=== PATIENT | male | born 1945 | race Caucasian/White ===

== ENCOUNTER 2024-03-10 09:55 | Outpatient (AMB) | payer MEDICARE, SELFPAY ==
[2024-03-10 10:16] VITALS: BP 135/76; PULSE 63; RESP 18; TEMP 36.3; O2SAT 96; BMI 30.6
--- NOTE | 2024-03-10 10:16 | PD.ORTHCLVIS ---
Vital signs 03/10/24 10:16 Height 1.7 m Height Method Stated Weight 88.649 kg Weight Measurement Method Standing Scale BMI 30.6 BP 135/76 H Blood Pressure Source Automatic Cuff Blood Pressure Location Right Upper Arm Position Sitting Respiration 18 Pulse 63 Pulse Source Monitor Temp 97.3 F Temp Source Temporal Artery Scan Pulse Oximetry (%) 96 Oxygen Delivery Method Room Air Med/Allergies Allergies & Medications Allergies NKA* Allergy (Uncoded 03/10/24 10:16) Medication Reconciliation CHOLECALCIFEROL (VITAMIN D3) (VITAMIN D3) 2,000 unit PO DAILY SUPPLEMENT ##0 10/12/12 [History Confirmed 03/10/24] MULTIVITS-MINERALS/FA/LYCOPENE (ONE DAILY FOR MEN TABLET) 1 tab PO DAILY SUPPLEMENT ##0 10/12/12 [History Confirmed 03/10/24] Morphine Sulfate * (MORPHINE SULFATE *) 15 mg PO TID PRN PAIN ##0 10/12/12 [History Confirmed 03/10/24] aspirin 81 mg tablet 81 mg PO DAILY HEART ##0 10/12/12 [History Confirmed 03/10/24] cyanocobalamin (vitamin B-12) 500 mcg tablet (Vitamin B-12) 500 mcg SL DAILY SUPPLEMENT ##0 10/12/12 [History Confirmed 03/10/24] dexlansoprazole 30 mg capsule,biphase delayed release (Dexilant) 30 mg PO DAILY GERD ##0 10/12/12 [History Confirmed 03/10/24] lisinopril 5 mg tablet 5 mg PO DAILY High Blood Pressure ##0 10/12/12 [History Confirmed 03/10/24] LINAGLIPTIN/METFORMIN HCL (JENTADUETO 2.5 MG-1000 MG TAB) 1 tab PO QDAY Diabetes ##0 02/25/15 [History Confirmed 03/10/24] bupropion HCl 200 mg tablet,12 hr sustained-release (Wellbutrin SR) 200 mg PO QDAY Depression ##0 02/25/15 [History Confirmed 03/10/24] insulin glargine 100 unit/mL subcutaneous solution (Lantus U-100 Insulin) 75 unit subcut BID Diabetes #0 vials 02/25/15 [History Confirmed 03/10/24] pregabalin 75 mg capsule (Lyrica) 75 mg PO TID NERVE PAIN #0 caps 02/25/15 [History Confirmed 03/10/24] meloxicam 7.5 mg tablet 7.5 mg PO QDAY #45 tabs 03/10/24 [Rx] Subjective Visit Visit for: new patient, hip and knee Immunization / Flu Flu Vaccine in the Last 12 Months: Yes Flu Vaccine Exclusion Criteria: Already Received History of Present Illness Chief complaint: PAIN ON HIP AND KNEE Anil is a pleasant 79-year-old male with Left hip pain and knee pain. The pain starts in his back and radiates down. He has a history of back surgery. He does have pain mostly in the groin. He has uncontrolled diabetes with A1c of 9 Pain Pain level (0-10): 5 Pain duration: WITH MOVEMENT Pain location: inside (medial), outside (lateral), anterior, posterior and other (specify) (HIP) Pain quality: sharp, dull and aching Pain timing: night, increases with activity and stairs Associated signs & symptoms: none Ambulatory data Ambulatory device: none Treatments Improvement with previous injections: No Improvement with PT: No Improvement with NSAIDS: no Review of Systems Review of Systems: All systems negative unless otherwise noted in HPI. Exam Exam Patient is in no acute distress and is cooperative with the examination today. Breathing is nonlabored. In no respiratory distress. Patient has no paraspinal tenderness. Spinal deformity [cannot] be appreciated. The gait of the patient is [nonantalgic] Bilateral extremities were evaluated and demonstrates sensation intact to light touch. Palpable pedal pulses are present. No significant edema is present. Bilateral knees were examined and the patient has full strength and range of motion.. The right hip was examined. Patient was able to flex to 90 degrees, adduct to 30 degrees, abduct to 40 degrees, internally rotate to 20 degrees, and externally rotate to 20 degrees. Patient has a negative logroll. Stinchfield is negative. The patient is nontender diffusely to touch. The left hip was examined. Patient was able to flex to [90] degrees, adduct to [30] degrees, abduct to [40] degrees, internally rotate to 10degrees, and externally rotate to [20] degrees. Patient has a negative logroll and Stinchfield X-rays of his hip and knee were reviewed. This demonstrates a mild to moderate arthritis of his left hip with joint space narrowing. There is significant osteophytes in his spine and degenerative lumbar disease His left knee x-rays are nonweightbearing and also demonstrates mild to moderate arthritis Assessment and Plan Problem List (1) Spinal stenosis: Status: Acute (2) Arthritis of left hip: Status: Acute Plan: Patient is a 79-year-old male with left hip and knee pain. The pain starts on the hip and radiates down to his knee. He has a history of back surgery and I wonder how much of this is coming from the back versus his hip and knee. The report says that there is moderate to advanced arthritis but actually looks milder to me. I would describe this as mild to moderate arthritis of the left hip. I would first like to start by getting weightbearing x-rays of the left knee. I would also like to see how much of this pain is coming from his hip with an intra-articular hip injection. I would like to see him in approximately 3 to 4 weeks after the hip injection is done. He is actually a poor candidate for a total hip replacement as his diabetes is currently uncontrolled and he is having vision changes from this. We will see him back after his cortisone injection of his hip in approximately 2 weeks after that. Advanced Care Planning Discussion Advance care planning discussed with:: patient and spouse Office Procedures GNS Level of Care Nursing/Assessment Patient Status: Initial/New Patient Nursing Assessment/Reassesment: Medication Reconciliation, Update PMH in EMR and Vital Signs Coordination of Care: Complex Care and Chronic Disease 1-5, Education Complex Pt/Fam, Consent,records obtained, informed consent, 1 Ins Authorization, Lab and Imaging orders and Staff clarify orders New Patient Charge New Patient Point Assignment: [id number] New Patient Point Charge: CLASS A [employer] Level 4 ([id number]) Past Medical History Past Medical History Have you ever been diagnosed with any of the following: Respiratory Problems Smoking: Yes (20 YEARS) Smoking Cessation Counseling: No Smoking Exposure: Yes
== END 2024-03-10 11:08 | disposition home or self-care (01) ==
PROVIDERS: PCP Internal Medicine; Referring Provider Internal Medicine; Supervising Provider Orthopaedic Surgery Adult Reconstructive Orthopaedic Surgery; Visit Provider Orthopaedic Surgery Adult Reconstructive Orthopaedic Surgery
DX: M48.00 Spinal stenosis, site unspecified (principal); M25.552 Pain in left hip; M16.12 Unilateral primary osteoarthritis, left hip; M25.569 Pain in unspecified knee
CPT/HCPCS: 99204; G0463

== ENCOUNTER → 2024-05-18 | Outpatient (CLI) | payer MEDICARE, SELFPAY ==
[2024-05-18 14:25] LABS: Glucose Estimated Average 183 mg/dL (80-131)
[2024-05-18 14:32] LABS: Albumin, Serum 4.5 gm/dL (3.4-4.8); Anion Gap 6 (7-16); BUN/Creatinine Ratio 13 Ratio (12-20); Blood Urea Nitrogen 17 mg/dL (9-23); Chloride 98 mMol/L (98-107); Creatinine (Component) 1.3 mg/dL (0.6-1.3); Glucose 70 mg/dL (74-106); Osmolality,Calculated 262 (275-295); Phosphorous 2.5 mg/dL (2.4-5.1); Potassium 4.9 mMol/L (3.4-5.1); Sodium 131 mMol/L (136-145); eGFR 56 See Note
== END | disposition home or self-care (01) ==
PROVIDERS: PCP Internal Medicine; Referring Provider Internal Medicine; Visit Provider Internal Medicine
DX: E11.22 Type 2 diabetes mellitus with diabetic chronic kidney disease (principal); N18.30 Chronic kidney disease, stage 3 unspecified
CPT/HCPCS: 36415; 80069; 83036

== ENCOUNTER 2024-05-24 14:46 | Outpatient (AMB) | payer OTHER, SELFPAY ==
[2024-05-24 14:56] VITALS: BP 143/73; PULSE 78; RESP 18; TEMP 36.5; O2SAT 98; BMI 30.7
--- NOTE | 2024-05-24 14:56 | PD.ORTHCLVIS ---
Vital signs 05/24/24 14:56 Height 1.7 m Height Method Stated Weight 88.677 kg Weight Measurement Method Standing Scale BMI 30.7 BP 143/73 H Blood Pressure Source Automatic Cuff Blood Pressure Location Right Upper Arm Position Sitting Respiration 18 Pulse 78 Pulse Source Monitor Temp 97.7 F Temp Source Temporal Artery Scan Pulse Oximetry (%) 98 Oxygen Delivery Method Room Air Med/Allergies Allergies & Medications Allergies NKA* Allergy (Uncoded 05/24/24 15:01) Medication Reconciliation CHOLECALCIFEROL (VITAMIN D3) (VITAMIN D3) 2,000 unit PO DAILY SUPPLEMENT ##0 10/12/12 [History Confirmed 05/24/24] MULTIVITS-MINERALS/FA/LYCOPENE (ONE DAILY FOR MEN TABLET) 1 tab PO DAILY SUPPLEMENT ##0 10/12/12 [History Confirmed 05/24/24] Morphine Sulfate * (MORPHINE SULFATE *) 15 mg PO TID PRN PAIN ##0 10/12/12 [History Confirmed 05/24/24] aspirin 81 mg tablet 81 mg PO DAILY HEART ##0 10/12/12 [History Confirmed 05/24/24] cyanocobalamin (vitamin B-12) 500 mcg tablet (Vitamin B-12) 500 mcg SL DAILY SUPPLEMENT ##0 10/12/12 [History Confirmed 05/24/24] dexlansoprazole 30 mg capsule,biphase delayed release (Dexilant) 30 mg PO DAILY GERD ##0 10/12/12 [History Confirmed 05/24/24] lisinopril 5 mg tablet 5 mg PO DAILY High Blood Pressure ##0 10/12/12 [History Confirmed 05/24/24] LINAGLIPTIN/METFORMIN HCL (JENTADUETO 2.5 MG-1000 MG TAB) 1 tab PO QDAY Diabetes ##0 02/25/15 [History Confirmed 05/24/24] bupropion HCl 200 mg tablet,12 hr sustained-release (Wellbutrin SR) 200 mg PO QDAY Depression ##0 02/25/15 [History Confirmed 05/24/24] insulin glargine 100 unit/mL subcutaneous solution (Lantus U-100 Insulin) 75 unit subcut BID Diabetes #0 vials 02/25/15 [History Confirmed 05/24/24] pregabalin 75 mg capsule (Lyrica) 75 mg PO TID NERVE PAIN #0 caps 02/25/15 [History Confirmed 05/24/24] meloxicam 7.5 mg tablet 7.5 mg PO QDAY #45 tabs 03/10/24 [Rx Confirmed 05/24/24] Exam Exam Patient is in no acute distress and is cooperative with the examination today. Breathing is nonlabored. In no respiratory distress. Patient has no paraspinal tenderness. Spinal deformity [cannot] be appreciated. The gait of the patient is [nonantalgic] Bilateral extremities were evaluated and demonstrates sensation intact to light touch. Palpable pedal pulses are present. No significant edema is present. Bilateral knees were examined and the patient has full strength and range of motion.. The right hip was examined. Patient was able to flex to 90 degrees, adduct to 30 degrees, abduct to 40 degrees, internally rotate to 20 degrees, and externally rotate to 20 degrees. Patient has a negative logroll. Stinchfield is negative. The patient is nontender diffusely to touch. The left hip was examined. Patient was able to flex to [90] degrees, adduct to [30] degrees, abduct to [40] degrees, internally rotate to 10degrees, and externally rotate to [20] degrees. Patient has a negative logroll and Stinchfield X-rays of his hip and knee were reviewed. This demonstrates a mild to moderate arthritis of his left hip with joint space narrowing. There is significant osteophytes in his spine and degenerative lumbar disease His left knee x-rays are nonweightbearing and also demonstrates mild to moderate arthritis. Assessment and Plan Problem List (1) Spinal stenosis: Status: Acute (2) Arthritis of left hip: Status: Acute Plan: Patient is a 79-year-old male with left hip and knee pain. The pain starts on the hip and radiates down to his knee. He did receive good relief to the hip injection. He would like a knee injection today which I think is reasonable. He does have mild to moderate arthritis Recommend knee cortisone injection as patient would like to proceed with conservative treatment at this time. The risks and benefits of the procedure were reviewed with the patient and patient gave verbal consent to continue with the procedure. Procedure: performed by Dr. Sanchez Using sterile technique the left knee was thoroughly prepped with alcohol, and approximately 1 cc of Kenalog 40 mg/mL and 4 cc of 1% lidocaine was injected without resistance into the medial tibial femoral joint space. The patient tolerated the procedure. Advanced Care Planning Discussion Advance care planning discussed with:: patient Office Procedures GNS Level of Care Nursing/Assessment Patient Status: Established Patient Nursing Assessment/Reassesment: Medication Reconciliation, Update PMH in EMR and Vital Signs Coordination of Care: Complex Care and Chronic Disease 1-5, Education Complex Pt/Fam, Consent,records obtained, informed consent, Results/Orders obtained and Staff clarify orders Established Patient Charge Established Patient Point Assignment: 95 Established Patient Point Charge: EP Level 3 (80-115) Surgical Proc/IM SQ injection Major Surgical Procedure: Yes (KNEE INJECTION) Medication Given Medication Given Medication Given: Yes Documented Dose Given: 4 Route: Infiitration Medication Given Medication Given Medication Given: Yes Documented Dose Given: 4 Route: Infiitration Medication Given Medication Given Medication Given: Yes Documented Dose Given: 1 Route: Infiitration Medication Given Medication Given Medication Given: Yes Documented Dose Given: 1 Route: Infiitration Office Meds Xylocaine 10 mg/mL (1 %) injection solution Performing Provider: Jarred Sanchez MD Performing Location: [facility] Administered by: Jarred Sanchez MD on 05/24/24 15:20 Dose Route Admin Location Dispensed Lot Number Expiration Date [place] Stock Turner 20 mL Infiltration 20 mL [id number] 09/08/27 65876-476-42 [employer] Xylocaine 10 mg/mL (1 %) injection solution Performing Provider: Jarred Sanchez MD Performing Location: [facility] Administered by: Jarred Sanchez MD on 05/24/24 15:20 Dose Route Admin Location Dispensed Lot Number Expiration Date [place] Stock Turner 20 mL Infiltration 20 mL [id number] 09/08/27 61176-405-23 [employer] triamcinolone acetonide 40 mg/mL suspension for injection Performing Provider: Jarred Sanchez MD Performing Location: [facility] Administered by: Jarred Sanchez MD on 05/24/24 15:20 Dose Route Admin Location Dispensed Lot Number Expiration Date [facility] Stock Turner 40 mg intra-articular KNEE 1 mL [id number] 10/07/25 3574-1282-49 [employer] triamcinolone acetonide 40 mg/mL suspension for injection Performing Provider: Jarred Sanchez MD Performing Location: [facility] Administered by: Jarred Sanchez MD on 05/24/24 15:20 Dose Route Admin Location Dispensed Lot Number Expiration Date [facility] Stock Turner 40 mg intra-articular KNEE 1 mL [id number] 10/07/25 1263-7321-94 TEVA PARENTERAL [place] Intake Visit Data Collection New Patient or Established: Established Patient (seen at [facility] within 3 years) Reason for Visit:: LEFT KNEE PAIN Seen by Clinical Staff ONLY (RN/SWETA): No Verbal consent obtained for Telemed visit?: No Paramedic Supervisor Required: No PCP or OBGYN visit in last 3 months: Yes Hx Now: No Do You Feel Safe at Home: Yes Authorities Contacted: N/A Questionairres Past Medical History Past Medical History Have you ever been diagnosed with any of the following: Respiratory Problems Smoking: Yes (20 YEARS) Smoking Cessation Counseling: No Smoking Exposure: Yes Subjective Visit Visit for: follow up visit and knee Immunization / Flu Flu Vaccine in the Last 12 Months: No Flu Vaccine Exclusion Criteria: No Exclusion Criteria History of Present Illness Chief complaint: LEFT KNEE PAIN Chava is a 79-year-old male with a left hip and left knee pain. He has she did really well with a left hip cortisone injection that was intra-articular. He reports the left knee is actually was bothering him the most. He does not. This. He reports mostly pain.. We thus discussed a cortisone injection today Pain Pain level (0-10): 8 Pain duration: COMES AND GOES Pain location: inside (medial), outside (lateral), anterior and posterior Pain quality: sharp and burning Pain timing: increases with activity Ambulatory data Ambulatory device: none Treatments Improvement with previous injections: No Improvement with PT: No Improvement with NSAIDS: n/a Review of Systems Review of Systems: All systems negative unless otherwise noted in HPI.
== END 2024-05-24 15:30 | disposition home or self-care (01) ==
PROVIDERS: PCP Internal Medicine; Referring Provider Internal Medicine; Supervising Provider Orthopaedic Surgery Adult Reconstructive Orthopaedic Surgery; Visit Provider Orthopaedic Surgery Adult Reconstructive Orthopaedic Surgery
DX: M16.12 Unilateral primary osteoarthritis, left hip (principal); M48.00 Spinal stenosis, site unspecified
CPT/HCPCS: 20610; 99213; J3301; J3490; G0463

== ENCOUNTER → 2024-10-05 | Outpatient (CLI) | payer OTHER, SELFPAY ==
[2024-10-05 10:26] LABS: Basophils # (Auto) 0.1 Thou/mm3 (0.0-0.2); Basophils % (Auto) 1 % (0-2.5); Eosinophils # (Auto) 0.3 Thou/mm3 (0.0-0.5); Eosinophils % (Auto) 4 % (0-10); Hemoglobin 14.1 g/dL (13.5-16.0); Immature Granulocytes % (Auto) 1 % (0-0); Immature Granulocytes Auto 0.07 Thou/mm3 (0.00-0.00); Lymphocytes % (Auto) 27 % (10-50); Mean Corpuscular HGB Conc 35.3 g/dl (31.0-37.0); Mean Corpuscular Hemoglobin 33.3 pg (25.0-35.0); Mean Corpuscular Volume 95 fL (80-100); Monocytes # (Auto) 0.8 Thou/mm3 (0.0-0.8); Monocytes % (Auto) 10 % (0-12); Neutrophils # (Auto) 4.1 Thou/mm3 (1.8-7.7); Neutrophils % (Auto) 56 % (37-80); Nucleated Red Blood Cell % 0 /100 WBC (0); Platelet Count 297 Thou/mm3 (140-440); RDW Standard Deviation 46.2 fL (35.1-43.9); Red Blood Count 4.23 Miln/mm3 (4.50-5.90); White Blood Count 7.3 Thou/mm3 (3.8-10.6)
[2024-10-05 10:33] LABS: Glucose Estimated Average 183 mg/dL (80-131)
[2024-10-05 10:36] LABS: PSA Medicare Annual Scrn 0.65 ng/mL (0-4.00)
[2024-10-05 10:41] LABS: Parathyroid Hormone Intact 14.5 pg/ml (18.5-88.0)
[2024-10-05 10:55] LABS: Alanine Aminotransferase 20 U/L (10-49); Albumin, Serum 4.2 gm/dL (3.4-4.8); Albumin/Globulin Ratio 1.7 (1.2-2.2); Alkaline Phosphatase 49 U/L (46-116); Anion Gap 9 (7-16); Aspartate Amino Transferase 27 U/L (0-34); BUN/Creatinine Ratio 11 Ratio (12-20); Bilirubin,Total 0.4 mg/dL (0.3-1.2); Blood Urea Nitrogen 16 mg/dL (9-23); Calcium 9.5 mg/dL (8.3-10.6); Calcium (Corrected) 9.5 mg/dL (8.5-10.1); Carbon Dioxide 27.4 mMol/L (20.0-31.0); Cardiac Risk Estimate 3.1 RATIO (4.0-6.7); Chloride 100 mMol/L (98-107); Cholesterol 111 mg/dL (132-200); Creatinine (Component) 1.4 mg/dL (0.6-1.3); Globulin 2.5 gm/dL (2.3-3.5); Glucose 109 mg/dL (74-106); HDL Cholesterol 36 mg/dL (40-60); LDL Cholesterol,Calculated 40 mg/dL (0-130); Osmolality,Calculated 274 (275-295); Sodium 136 mMol/L (136-145); Total Protein 6.7 gm/dL (5.7-8.2); Triglycerides 174 mg/dL (30-150); eGFR 51 See Note
[2024-10-05 11:08] LABS: Collection Type, Urine Clean Catch
[2024-10-05 11:39] LABS: Bilirubin,Urine Negative (Negative); Blood,Urine Negative (Negative); Clarity,Urine Clear (Clear/Hazy); Color,Urine Lt-Yellow (Lt Yel-Yel); Glucose, Urine Negative (Negative); Ketones,Urine Negative (Negative); Leukocyte Esterase,Urine Positive (Negative); Nitrite,Urine Negative (Negative); Protein,Urine Trace (Neg - Trace); RBC,Urine 3 /hpf (0-3); Specific Gravity,Urine 1.016 (1.001-1.035); Squamous Epithelial Cell,Urine 3 /hpf (0-5); Urobilinogen,Urine Negative mg/dL (0.0-1.0); WBC,Urine 65 /hpf (0-5)
[2024-10-05 11:53] LABS: Creatinine MALB Rnd Ur 86 mg/dL (30-125); Microalbumin Creat Ratio 80 mg/gCrea (<30); Microalbumin, Random Urine 69 mg/L (0-300)
== END | disposition home or self-care (01) ==
LOC: COPL 09:37
PROVIDERS: PCP Internal Medicine; Referring Provider Internal Medicine; Visit Provider Internal Medicine
DX: I12.9 Hypertensive chronic kidney disease with stage 1 through stage 4 chronic kidney disease, or unspecified chronic kidney disease (principal); E11.22 Type 2 diabetes mellitus with diabetic chronic kidney disease; N18.30 Chronic kidney disease, stage 3 unspecified; E78.5 Hyperlipidemia, unspecified; Z12.5 Encounter for screening for malignant neoplasm of prostate
CPT/HCPCS: 36415; 80053; 80061; 81001; 82043; 82570; 83036; 83970; 84153; 85025; G0103

== ENCOUNTER 2024-11-22 14:13 | Outpatient (AMB) | payer OTHER, SELFPAY ==
[2024-11-22 14:43] VITALS: BP 108/57; PULSE 76; RESP 18; TEMP 36.1; O2SAT 91; BMI 30.8
--- NOTE | 2024-11-22 14:43 | PD.ORTHCLVIS ---
Vital signs 11/22/24 14:43 Height 1.7 m Height Method Stated Weight 89.046 kg Weight Measurement Method Standing Scale BMI 30.8 BP 108/57 L Blood Pressure Source Automatic Cuff Blood Pressure Location Right Upper Arm Position Sitting Respiration 18 Pulse 76 Pulse Source Monitor Temp 97.0 F Temp Source Temporal Artery Scan Pulse Oximetry (%) 91 L Oxygen Delivery Method Room Air Med/Allergies Allergies & Medications Allergies NKA* Allergy (Uncoded 11/22/24 14:43) Medication Reconciliation CHOLECALCIFEROL (VITAMIN D3) (VITAMIN D3) 2,000 unit PO DAILY SUPPLEMENT ##0 10/12/12 [History Confirmed 11/22/24] MULTIVITS-MINERALS/FA/LYCOPENE (ONE DAILY FOR MEN TABLET) 1 tab PO DAILY SUPPLEMENT ##0 10/12/12 [History Confirmed 11/22/24] Morphine Sulfate * (MORPHINE SULFATE *) 15 mg PO TID PRN PAIN ##0 10/12/12 [History Confirmed 11/22/24] aspirin 81 mg tablet 81 mg PO DAILY HEART ##0 10/12/12 [History Confirmed 11/22/24] cyanocobalamin (vitamin B-12) 500 mcg tablet (Vitamin B-12) 500 mcg SL DAILY SUPPLEMENT ##0 10/12/12 [History Confirmed 11/22/24] dexlansoprazole 30 mg capsule,biphase delayed release (Dexilant) 30 mg PO DAILY GERD ##0 10/12/12 [History Confirmed 11/22/24] lisinopril 5 mg tablet 5 mg PO DAILY High Blood Pressure ##0 10/12/12 [History Confirmed 11/22/24] LINAGLIPTIN/METFORMIN HCL (JENTADUETO 2.5 MG-1000 MG TAB) 1 tab PO QDAY Diabetes ##0 02/25/15 [History Confirmed 11/22/24] bupropion HCl 200 mg tablet,12 hr sustained-release (Wellbutrin SR) 200 mg PO QDAY Depression ##0 02/25/15 [History Confirmed 11/22/24] insulin glargine 100 unit/mL subcutaneous solution (Lantus U-100 Insulin) 75 unit subcut BID Diabetes #0 vials 02/25/15 [History Confirmed 11/22/24] pregabalin 75 mg capsule (Lyrica) 75 mg PO TID NERVE PAIN #0 caps 02/25/15 [History Confirmed 11/22/24] meloxicam 7.5 mg tablet 7.5 mg PO QDAY #45 tabs 03/10/24 [Rx Confirmed 11/22/24] Exam Exam Patient is in no acute distress and is cooperative with the examination today. Breathing is nonlabored. In no respiratory distress. Patient has no paraspinal tenderness. Spinal deformity [cannot] be appreciated. The gait of the patient is [nonantalgic] Bilateral extremities were evaluated and demonstrates sensation intact to light touch. Palpable pedal pulses are present. No significant edema is present. Bilateral knees were examined and the patient has full strength and range of motion.. The right hip was examined. Patient was able to flex to 90 degrees, adduct to 30 degrees, abduct to 40 degrees, internally rotate to 20 degrees, and externally rotate to 20 degrees. Patient has a negative logroll. Stinchfield is negative. The patient is nontender diffusely to touch. The left hip was examined. Patient was able to flex to [90] degrees, adduct to [30] degrees, abduct to [40] degrees, internally rotate to 10degrees, and externally rotate to [20] degrees. Patient has a negative logroll and Stinchfield X-rays of his hip and knee were reviewed. This demonstrates a mild to moderate arthritis of his left hip with joint space narrowing. There is significant osteophytes in his spine and degenerative lumbar disease His left knee x-rays are nonweightbearing and also demonstrates mild to moderate arthritis. Assessment and Plan Problem List (1) Spinal stenosis: Status: Acute (2) Arthritis of left hip: Status: Acute Plan: Patient is a 79-year-old male with left hip and knee pain. The pain starts on the hip and radiates down to his knee. He would like bilateral knee injections today. He reports that his left hip is doing significantly better Recommend knee cortisone injections as patient would like to proceed with conservative treatment at this time. The risks and benefits of the procedure were reviewed with the patient and patient gave verbal consent to continue with the procedure. Procedure: performed by Dr. Sanchez Using sterile technique the Bilateral knees were thoroughly prepped with alcohol, and approximately 1 cc of Kenalog 40 mg/mL and 4 cc of 1% lidocaine was injected into each knee without resistance into the medial tibial femoral joint space. The patient tolerated the procedure. Advanced Care Planning Discussion Advance care planning discussed with:: patient Office Procedures GNS Level of Care Nursing/Assessment Patient Status: Established Patient Nursing Assessment/Reassesment: Medication Reconciliation, Update PMH in EMR and Vital Signs Coordination of Care: Complex Care and Chronic Disease 1-5, Education Complex Pt/Fam, Consent,records obtained, informed consent, Results/Orders obtained and Staff clarify orders Established Patient Charge Established Patient Point Assignment: 95 Established Patient Point Charge: EP Level 3 (80-115) Surgical Proc/IM SQ injection Major Surgical Procedure: Yes (BILATERAL KNEE INJECTION ) Medication Given Medication Given Medication Given: Yes Documented Dose Given: 8 Route: Infiitration Medication Given Medication Given Medication Given: Yes Documented Dose Given: 2 Route: Infiitration Office Meds Xylocaine 10 mg/mL (1 %) injection solution Performing Provider: Jarred Sanchez MD Performing Location: [facility] Administered by: Jarred Sanchez MD on 11/22/24 15:27 Dose Route Admin Location Dispensed Lot Number Expiration Date [facility] Celluloid Trimmer 40 mL Infiltration KNEE 40 mL [id number] 02/08/28 36842-019-71 [facility] triamcinolone acetonide 40 mg/mL suspension for injection Performing Provider: Jarred Sanchez MD Performing Location: [facility] Administered by: Jarred Sanchez MD on 11/22/24 15:27 Dose Route Admin Location Dispensed Lot Number Expiration Date [facility] Celluloid Trimmer 80 mg intra-articular KNEE 2 mL [id number] 06/10/26 54200-876-93 BILLY GOLDMAN [place] Intake Visit Data Collection New Patient or Established: Established Patient (seen at [facility] within 3 years) Reason for Visit:: LEFT KNEE PAIN Seen by Clinical Staff ONLY (RN/MA): No Verbal consent obtained for Telemed visit?: No Director Of Cardiopulmonary Services Required: No PCP or OBGYN visit in last 3 months: Yes Hx Now: No Do You Feel Safe at Home: Yes Authorities Contacted: N/A Questionairres Past Medical History Past Medical History Have you ever been diagnosed with any of the following: Respiratory Problems Smoking: Yes (20 YEARS) Smoking Cessation Counseling: No Smoking Exposure: Yes Subjective Visit Visit for: follow up visit and knee Immunization / Flu Flu Vaccine in the Last 12 Months: No Flu Vaccine Exclusion Criteria: No Exclusion Criteria History of Present Illness Chief complaint: LEFT KNEE PAIN Chava is a 79-year-old male with a left hip and left knee pain. He has she did really well with a left hip cortisone injection that was intra-articular. He reports that he has bilateral knee pain. X-rays demonstrate bilateral knee arthritis of moderate severity. He would like bilateral knee injections today Personal History Occupation: DISABLED Red flag PMH: BMI Pain Pain level (0-10): 8 Pain duration: ALL DAY Pain location: outside (lateral) and anterior Pain quality: sharp and dull Pain timing: increases with activity Associated signs & symptoms: none Ambulatory data Ambulatory device: cane Treatments Improvement with previous injections: No Improvement with PT: No Improvement with NSAIDS: no Review of Systems Review of Systems: All systems negative unless otherwise noted in HPI.
== END 2024-11-22 15:11 | disposition home or self-care (01) ==
LOC: HODSRG 14:13
PROVIDERS: PCP Internal Medicine; Referring Provider Internal Medicine; Supervising Provider Orthopaedic Surgery Adult Reconstructive Orthopaedic Surgery; Visit Provider Orthopaedic Surgery Adult Reconstructive Orthopaedic Surgery
DX: M17.0 Bilateral primary osteoarthritis of knee (principal); M25.562 Pain in left knee; M25.561 Pain in right knee; M25.552 Pain in left hip; M16.12 Unilateral primary osteoarthritis, left hip; M48.00 Spinal stenosis, site unspecified
CPT/HCPCS: 20610; 99213; J3301; J3490; G0463

== ENCOUNTER → 2024-12-16 | Outpatient (CLI) | payer OTHER, SELFPAY ==
[2024-12-16 10:20] LABS: Collection Type, Urine Clean Catch
[2024-12-16 10:36] LABS: Basophils # (Auto) 0.1 Thou/mm3 (0.0-0.2); Basophils % (Auto) 1 % (0-2.5); Eosinophils # (Auto) 0.3 Thou/mm3 (0.0-0.5); Eosinophils % (Auto) 4 % (0-10); Hematocrit 38.5 % (41.0-53.0); Hemoglobin 13.3 g/dL (13.5-16.0); Immature Granulocytes Auto 0.08 Thou/mm3 (0.00-0.00); Lymphocytes # (Auto) 2.2 Thou/mm3 (1.0-4.8); Lymphocytes % (Auto) 28 % (10-50); Mean Corpuscular HGB Conc 34.5 g/dl (31.0-37.0); Mean Corpuscular Hemoglobin 33.5 pg (25.0-35.0); Mean Corpuscular Volume 97 fL (80-100); Monocytes # (Auto) 0.8 Thou/mm3 (0.0-0.8); Monocytes % (Auto) 10 % (0-12); Neutrophils # (Auto) 4.3 Thou/mm3 (1.8-7.7); Neutrophils % (Auto) 56 % (37-80); Nucleated Red Blood Cell # 0.00 Thou/mm3 (0.00-0.00); Nucleated Red Blood Cell % 0 /100 WBC (0); Platelet Count 311 Thou/mm3 (140-440); RDW Standard Deviation 47.9 fL (35.1-43.9); Red Blood Count 3.97 Miln/mm3 (4.50-5.90); White Blood Count 7.7 Thou/mm3 (3.8-10.6)
[2024-12-16 10:45] LABS: PSA Medicare Annual Scrn 0.75 ng/mL (0-4.00); Parathyroid Hormone Intact 14.1 pg/ml (18.5-88.0)
[2024-12-16 10:46] LABS: Glucose Estimated Average 217 mg/dL (80-131); Hemoglobin A1C 9.2 % Hgb (4.8-6.0)
[2024-12-16 10:48] LABS: Alanine Aminotransferase 24 U/L (10-49); Albumin, Serum 4.0 gm/dL (3.4-4.8); Albumin/Globulin Ratio 1.9 (1.2-2.2); Alkaline Phosphatase 49 U/L (46-116); Anion Gap 7 (7-16); Aspartate Amino Transferase 28 U/L (0-34); BUN/Creatinine Ratio 10 Ratio (12-20); Bilirubin,Total 0.3 mg/dL (0.3-1.2); Blood Urea Nitrogen 15 mg/dL (9-23); Calcium 9.7 mg/dL (8.3-10.6); Calcium (Corrected) 9.7 mg/dL (8.5-10.1); Carbon Dioxide 25.5 mMol/L (20.0-31.0); Cardiac Risk Estimate 3.9 RATIO (4.0-6.7); Chloride 105 mMol/L (98-107); Cholesterol 131 mg/dL (132-200); Creatinine (Component) 1.5 mg/dL (0.6-1.3); Globulin 2.1 gm/dL (2.3-3.5); Glucose 198 mg/dL (74-106); HDL Cholesterol 34 mg/dL (40-60); LDL Cholesterol,Calculated 48 mg/dL (0-130); Osmolality,Calculated 280 (275-295); Potassium 4.9 mMol/L (3.4-5.1); Sodium 137 mMol/L (136-145); Thyroid Stimulating Hormone 0.84 uIU/mL (0.55-4.78); Total Protein 6.1 gm/dL (5.7-8.2); Triglycerides 243 mg/dL (30-150); eGFR 47 See Note
[2024-12-16 10:49] LABS: Vitamin B12 555 pg/mL (211-911); Vitamin D 25 Hydroxy Total 37.0 ng/mL (7.3-40.2)
[2024-12-16 10:51] LABS: Creatinine MALB Rnd Ur 134 mg/dL (30-125); Microalbumin Creat Ratio 48 mg/gCrea (<30); Microalbumin, Random Urine 64 mg/L (0-300)
[2024-12-16 11:12] LABS: Bilirubin,Urine Negative (Negative); Blood,Urine Negative (Negative); Clarity,Urine Clear (Clear/Hazy); Color,Urine Lt-Yellow (Lt Yel-Yel); Glucose, Urine 4+ (Negative); Ketones,Urine Negative (Negative); Leukocyte Esterase,Urine Positive (Negative); Nitrite,Urine Negative (Negative); PH,Urine 5.5 (5.0-7.0); Protein,Urine Trace (Neg - Trace); RBC,Urine 4 /hpf (0-3); Specific Gravity,Urine 1.024 (1.001-1.035); Squamous Epithelial Cell,Urine 1 /hpf (0-5); Urobilinogen,Urine Negative mg/dL (0.0-1.0); WBC,Urine 53 /hpf (0-5)
== END | disposition home or self-care (01) ==
LOC: COPL 09:33
PROVIDERS: PCP Internal Medicine; Referring Provider Internal Medicine; Visit Provider Internal Medicine
DX: I12.9 Hypertensive chronic kidney disease with stage 1 through stage 4 chronic kidney disease, or unspecified chronic kidney disease (principal); E11.22 Type 2 diabetes mellitus with diabetic chronic kidney disease; N18.30 Chronic kidney disease, stage 3 unspecified; E78.5 Hyperlipidemia, unspecified
CPT/HCPCS: 36415; 80053; 80061; 81001; 82043; 82306; 82570; 82607; 83036; 83970; 84153; 84443; 85025; G0103

== ENCOUNTER → 2025-01-11 | Outpatient (CLI) | payer OTHER, SELFPAY ==
[2025-01-11 12:16] LABS: OBS Performed By LAB; OBS QC OK? Yes
[2025-01-11 13:27] LABS: Occult Blood, Stool Negative (Negative); Occult Blood, Stool #2 Negative (Negative); Occult Blood, Stool #3 Negative (Negative)
[2025-01-11 13:28] LABS: OBS Developer Lot # 4-24-551749
== END | disposition home or self-care (01) ==
LOC: SLDO 12:02
PROVIDERS: Referring Provider Internal Medicine; Visit Provider Internal Medicine
DX: Z12.11 Encounter for screening for malignant neoplasm of colon (principal)
CPT/HCPCS: 82270

== ENCOUNTER 2025-02-07 15:12 | Outpatient (AMB) | payer OTHER, SELFPAY ==
--- NOTE | 2025-02-07 15:26 | XR_ITS ---
Examination: Bilateral knees 2 views Right lateral knee left lateral knee 2 views Bilateral axial knees single view TECHNIQUE: Bilateral AP knees standing single view, bilateral PA knees standing single view flexion Standing right lateral knee left lateral knee 2 views Bilateral axial knees single view total 5 views Date and time: February 07, 2025 1541 hours INDICATIONS: Knee pain years. 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
--- NOTE | 2025-02-07 15:26 | ORTHONT_ITS ---
Vital signs 02/07/25 15:27 Height 1.7 m Height Method Measured Weight 88.195 kg Weight Measurement Method Standing Scale BMI 30.5 BP 133/69 H Blood Pressure Source Automatic Cuff Blood Pressure Location Left Upper Arm Position Sitting Respiration 18 Pulse 76 Pulse Source Monitor Temp 97.3 F Temp Source Temporal Artery Scan Pulse Oximetry (%) 97 Oxygen Delivery Method Room Air Med/Allergies Allergies & Medications Allergies NKA* Allergy (Uncoded 02/07/25 15:31) Medication Reconciliation CHOLECALCIFEROL (VITAMIN D3) (VITAMIN D3) 2,000 unit PO DAILY SUPPLEMENT ##0 10/12/12 [History Confirmed 02/07/25] MULTIVITS-MINERALS/FA/LYCOPENE (ONE DAILY FOR MEN TABLET) 1 tab PO DAILY SUPPLEMENT ##0 10/12/12 [History Confirmed 02/07/25] Morphine Sulfate * (MORPHINE SULFATE *) 15 mg PO TID PRN PAIN ##0 10/12/12 [History Confirmed 02/07/25] aspirin 81 mg tablet 81 mg PO DAILY HEART ##0 10/12/12 [History Confirmed 02/07/25] cyanocobalamin (vitamin B-12) 500 mcg tablet (Vitamin B-12) 500 mcg SL DAILY SUPPLEMENT ##0 10/12/12 [History Confirmed 02/07/25] dexlansoprazole 30 mg capsule,biphase delayed release (Dexilant) 30 mg PO DAILY GERD ##0 10/12/12 [History Confirmed 02/07/25] lisinopril 5 mg tablet 5 mg PO DAILY High Blood Pressure ##0 10/12/12 [History Confirmed 02/07/25] LINAGLIPTIN/METFORMIN HCL (JENTADUETO 2.5 MG-1000 MG TAB) 1 tab PO QDAY Diabetes ##0 02/25/15 [History Confirmed 02/07/25] bupropion HCl 200 mg tablet,12 hr sustained-release (Wellbutrin SR) 200 mg PO QDAY Depression ##0 02/25/15 [History Confirmed 02/07/25] insulin glargine 100 unit/mL subcutaneous solution (Lantus U-100 Insulin) 75 unit subcut BID Diabetes #0 vials 02/25/15 [History Confirmed 02/07/25] pregabalin 75 mg capsule (Lyrica) 75 mg PO TID NERVE PAIN #0 caps 02/25/15 [History Confirmed 02/07/25] meloxicam 7.5 mg tablet 7.5 mg PO QDAY #45 tabs 03/10/24 [Rx Confirmed 02/07/25] Exam Exam Patient is in no acute distress and is cooperative with the examination today. Breathing is nonlabored. In no respiratory distress. Patient has no paraspinal tenderness. Spinal deformity [cannot] be appreciated. The gait of the patient is [nonantalgic] Bilateral extremities were evaluated and demonstrates sensation intact to light touch. Palpable pedal pulses are present. No significant edema is present. Bilateral knees were examined and the patient has full strength and range of motion.. The right hip was examined. Patient was able to flex to 90 degrees, adduct to 30 degrees, abduct to 40 degrees, internally rotate to 20 degrees, and externally rotate to 20 degrees. Patient has a negative logroll. Stinchfield is negative. The patient is nontender diffusely to touch. The left hip was examined. Patient was able to flex to [90] degrees, adduct to [30] degrees, abduct to [40] degrees, internally rotate to 10degrees, and externally rotate to [20] degrees. Patient has a negative logroll and Stinchfield X-rays of his hip and knee were reviewed. This demonstrates a mild to moderate arthritis of his left hip with joint space narrowing. There is significant osteophytes in his spine and degenerative lumbar disease His left knee x-rays are nonweightbearing and also demonstrates mild to moderate arthritis. Assessment and Plan Problem List (1) Spinal stenosis: Status: Acute (2) Arthritis of left hip: Status: Acute Plan: Patient is a 79-year-old male with left hip and knee pain. The pain starts on the hip and radiates down to his knee. He would like bilateral knee injections today. He reports that his left hip is doing significantly better Recommend knee cortisone injection as patient would like to proceed with conservative treatment at this time. The risks and benefits of the procedure were reviewed with the patient and patient gave verbal consent to continue with the procedure. Procedure: performed by Dr. Sanchez Using sterile technique the Right knee was thoroughly prepped with alcohol, and approximately 1 cc of Depo-Medrol 80mg/mL and 4 cc of 0.2% ropivacaine was injected without resistance into the medial tibial femoral joint space. The patient tolerated the procedure. Recommend knee cortisone injection as patient would like to proceed with conservative treatment at this time. The risks and benefits of the procedure were reviewed with the patient and patient gave verbal consent to continue with the procedure. Procedure: performed by Dr. Sanchez Using sterile technique the leftknee was thoroughly prepped with alcohol, and approximately 1 cc of Depo- Medrol 80mg/mL and 4 cc of 0.2% ropivacaine was injected without resistance into the medial tibial femoral joint space. The patient tolerated the procedure. Advanced Care Planning Discussion Advance care planning discussed with:: patient Office Procedures GNS Level of Care Nursing/Assessment Patient Status: Established Patient Nursing Assessment/Reassesment: Medication Reconciliation, Update PMH in EMR and Vital Signs Coordination of Care: Complex Care and Chronic Disease 1-5, Education Complex Pt/Fam, Consent,records obtained, informed consent, Results/Orders obtained and Staff clarify orders Established Patient Charge Established Patient Point Assignment: 95 Established Patient Point Charge: EP Level 3 (80-115) Surgical Proc/IM SQ injection Minor Surgical Procedure: Yes (KNEE INJECTION) Medication Given Medication Given Medication Given: Yes Documented Dose Given: 1 Route: Infiitration Medication Given Medication Given Medication Given: Yes Documented Dose Given: 1 Route: Infiitration Medication Given Medication Given Medication Given: Yes Documented Dose Given: 4 Route: Infiitration Medication Given Medication Given Medication Given: Yes Documented Dose Given: 4 Route: Infiitration Office Meds methylprednisolone acetate 80 mg/mL suspension for injection Performing Provider: Jarred Sanchez MD Performing Location: [facility] Administered by: Jarred Sanchez MD on 02/07/25 15:39 Dose Route Admin Location Dispensed Lot Number Expiration Date Pack age [facility] [employer] 80 mg intra-articular KNEE 1 mL [id number] 11/07/26 [address]-3 7 [id number] [employer] methylprednisolone acetate 80 mg/mL suspension for injection Performing Provider: Jarred Sanchez MD Performing Location: [facility] Administered by: Jarred Sanchez MD on 02/07/25 15:39 Dose Route Admin Location Dispensed Lot Number Expiration Date Pack age [facility] [employer] 80 mg intra-articular KNEE 1 mL [id number] 11/07/26 [address]-4 7 [id number] [employer] ropivacaine (PF) 2 mg/mL (0.2 %) injection solution Performing Provider: Jarred Sanchez MD Performing Location: [facility] Administered by: Jarred Sanchez MD on 02/07/25 15:39 Dose Route Admin Location Dispensed Lot Number Expiration Date Pack age [facility] [employer]ist 20 mL Infiltration KNEE 20 mL [id number] 06/10/27 30888-577-85 [phone] [id number] [facility] ropivacaine (PF) 2 mg/mL (0.2 %) injection solution Performing Provider: Jarred Sanchez MD Performing Location: [facility] Administered by: Jarred Sanchez MD on 02/07/25 15:39 Dose Route Admin Location Dispensed Lot Number Expiration Date Pack age [facility] ND [employer]ist 20 mL Infiltration KNEE 20 mL [id number] 06/10/27 81106-549-97 [phone] [id number] [facility] Intake Visit Data Collection New Patient or Established: Established Patient (seen at [facility] within 3 years) Reason for Visit:: LEFT KNEE PAIN Seen by Clinical Staff ONLY (RN/MA): No Verbal consent obtained for Telemed visit?: No 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 PCP or OBGYN visit in last 3 months: Yes Hx Now: No Do You Feel Safe at Home: Yes Authorities Contacted: N/A Questionairres Past Medical History Past Medical History Have you ever been diagnosed with any of the following: Respiratory Problems Smoking: Yes (20 YEARS) Smoking Cessation Counseling: No Smoking Exposure: Yes Subjective Visit Visit for: follow up visit and knee Immunization / Flu Flu Vaccine in the Last 12 Months: No Flu Vaccine Exclusion Criteria: No Exclusion Criteria History of Present Illness Chief complaint: LEFT KNEE PAIN Chava is a 79-year-old male with a left hip and left knee pain. He has she did really well with a left hip cortisone injection that was intra-articular. He reports that he has bilateral knee pain. X-rays demonstrate bilateral knee arthritis of moderate severity. He would like bilateral knee injections today Personal History Occupation: DISABLED Red flag PMH: BMI Pain Pain level (0-10): 8 Pain duration: ALL DAY Pain location: outside (lateral) and anterior Pain quality: sharp and dull Pain timing: increases with activity Associated signs & symptoms: none Ambulatory data Ambulatory device: cane Treatments Improvement with previous injections: No Improvement with PT: No Improvement with NSAIDS: no Review of Systems Review of Systems: All systems negative unless otherwise noted in HPI.
[2025-02-07 15:27] VITALS: BP 133/69; PULSE 76; RESP 18; TEMP 36.3; O2SAT 97; BMI 30.5
== END 2025-02-07 15:44 | disposition home or self-care (01) ==
LOC: HODSRG 15:12
PROVIDERS: PCP Internal Medicine; Referring Provider Internal Medicine; Supervising Provider Orthopaedic Surgery Adult Reconstructive Orthopaedic Surgery; Visit Provider Orthopaedic Surgery Adult Reconstructive Orthopaedic Surgery
DX: M25.562 Pain in left knee (principal); M25.561 Pain in right knee; M17.0 Bilateral primary osteoarthritis of knee; M48.00 Spinal stenosis, site unspecified
CPT/HCPCS: 20610; 73564; 99213; J1010; J2795; G0463

== ENCOUNTER 2025-03-14 12:52 | Outpatient (AMB) | payer OTHER, SELFPAY ==
--- NOTE | 2025-03-14 13:12 | PD.ORTHCLVIS ---
Vital signs 03/14/25 13:13 Height 1.7 m Height Method Stated Weight 87.543 kg Weight Measurement Method Standing Scale BMI 30.2 BP 115/64 Blood Pressure Source Automatic Cuff Blood Pressure Location Left Upper Arm Position Sitting Respiration 18 Pulse 71 Pulse Source Monitor Temp 95.7 F L Temp Source Temporal Artery Scan Pulse Oximetry (%) 98 Oxygen Delivery Method Room Air Med/Allergies Allergies & Medications Allergies NKA* Allergy (Uncoded 03/14/25 13:14) Medication Reconciliation CHOLECALCIFEROL (VITAMIN D3) (VITAMIN D3) 2,000 unit PO DAILY SUPPLEMENT ##0 10/12/12 [History Confirmed 03/14/25] MULTIVITS-MINERALS/FA/LYCOPENE (ONE DAILY FOR MEN TABLET) 1 tab PO DAILY SUPPLEMENT ##0 10/12/12 [History Confirmed 03/14/25] Morphine Sulfate * (MORPHINE SULFATE *) 15 mg PO TID PRN PAIN ##0 10/12/12 [History Confirmed 03/14/25] aspirin 81 mg tablet 81 mg PO DAILY HEART ##0 10/12/12 [History Confirmed 03/14/25] cyanocobalamin (vitamin B-12) 500 mcg tablet (Vitamin B-12) 500 mcg SL DAILY SUPPLEMENT ##0 10/12/12 [History Confirmed 03/14/25] dexlansoprazole 30 mg capsule,biphase delayed release (Dexilant) 30 mg PO DAILY GERD ##0 10/12/12 [History Confirmed 03/14/25] lisinopril 5 mg tablet 5 mg PO DAILY High Blood Pressure ##0 10/12/12 [History Confirmed 03/14/25] LINAGLIPTIN/METFORMIN HCL (JENTADUETO 2.5 MG-1000 MG TAB) 1 tab PO QDAY Diabetes ##0 02/25/15 [History Confirmed 03/14/25] bupropion HCl 200 mg tablet,12 hr sustained-release (Wellbutrin SR) 200 mg PO QDAY Depression ##0 02/25/15 [History Confirmed 03/14/25] insulin glargine 100 unit/mL subcutaneous solution (Lantus U-100 Insulin) 75 unit subcut BID Diabetes #0 vials 02/25/15 [History Confirmed 03/14/25] pregabalin 75 mg capsule (Lyrica) 75 mg PO TID NERVE PAIN #0 caps 02/25/15 [History Confirmed 03/14/25] meloxicam 7.5 mg tablet 7.5 mg PO QDAY #45 tabs 03/10/24 [Rx Confirmed 03/14/25] Exam Exam Patient is in no acute distress and is cooperative with the examination today. Breathing is nonlabored. In no respiratory distress. Patient has no paraspinal tenderness. Spinal deformity [cannot] be appreciated. The gait of the patient is [nonantalgic] Bilateral extremities were evaluated and demonstrates sensation intact to light touch. Palpable pedal pulses are present. No significant edema is present. Bilateral knees were examined and the patient has full strength and range of motion.. The right hip was examined. Patient was able to flex to 90 degrees, adduct to 30 degrees, abduct to 40 degrees, internally rotate to 20 degrees, and externally rotate to 20 degrees. Patient has a negative logroll. Stinchfield is negative. The patient is nontender diffusely to touch. The left hip was examined. Patient was able to flex to [90] degrees, adduct to [30] degrees, abduct to [40] degrees, internally rotate to 10degrees, and externally rotate to [20] degrees. Patient has a negative logroll and Stinchfield X-rays of his hip and knee were reviewed. This demonstrates a mild to moderate arthritis of his left hip with joint space narrowing. There is significant osteophytes in his spine and degenerative lumbar disease His left knee x-rays are nonweightbearing and also demonstrates mild to moderate arthritis. Assessment and Plan Problem List (1) Spinal stenosis: Status: Acute (2) Arthritis of left hip: Status: Acute Plan: Patient is a 79-year-old male with left hip and knee pain. The pain starts on the hip and radiates down to his knee. He reports dramatic relief of the pain. Advanced Care Planning Discussion Advance care planning discussed with:: patient Office Procedures GNS Level of Care Nursing/Assessment Patient Status: Established Patient Nursing Assessment/Reassesment: Medication Reconciliation, Update PMH in EMR and Vital Signs Coordination of Care: Complex Care and Chronic Disease 1-5, Education Complex Pt/Fam, Consent,records obtained, informed consent, Results/Orders obtained and Staff clarify orders Established Patient Charge Established Patient Point Assignment: 95 Established Patient Point Charge: Level 3 (80-115) PA Intake Visit Data Collection New Patient or Established: Established Patient (seen at [facility] within 3 years) Reason for Visit:: LEFT KNEE PAIN Seen by Clinical Staff ONLY (RN/MA): No Verbal consent obtained for Telemed visit?: No 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 PCP or OBGYN visit in last 3 months: Yes Hx Now: No Do You Feel Safe at Home: Yes Authorities Contacted: N/A Questionairres Past Medical History Past Medical History Have you ever been diagnosed with any of the following: Respiratory Problems Smoking: Yes (20 YEARS) Smoking Cessation Counseling: No Smoking Exposure: Yes Subjective Visit Visit for: follow up visit and knee Immunization / Flu Flu Vaccine in the Last 12 Months: No Flu Vaccine Exclusion Criteria: No Exclusion Criteria History of Present Illness Chief complaint: LEFT KNEE PAIN Chava is a 79-year-old male with a left hip and left knee pain. He has she did really well with a left hip cortisone injection that was intra-articular. He reports that he has bilateral knee pain. X-rays demonstrate bilateral knee arthritis of moderate severity. He had bilateral knee injections and reports tremendous relief of pain. Personal History Occupation: DISABLED Red flag PMH: BMI Pain Pain level (0-10): 8 Pain duration: ALL DAY Pain location: outside (lateral) and anterior Pain quality: sharp and dull Pain timing: increases with activity Associated signs & symptoms: none Ambulatory data Ambulatory device: cane Treatments Improvement with previous injections: No Improvement with PT: No Improvement with NSAIDS: no Review of Systems Review of Systems: All systems negative unless otherwise noted in HPI.
[2025-03-14 13:13] VITALS: BP 115/64; PULSE 71; RESP 18; TEMP 35.4; O2SAT 98; BMI 30.2
== END 2025-03-14 13:15 | disposition home or self-care (01) ==
LOC: HODSRG 12:52
PROVIDERS: Supervising Provider Orthopaedic Surgery Adult Reconstructive Orthopaedic Surgery; Visit Provider Orthopaedic Surgery Adult Reconstructive Orthopaedic Surgery
DX: M48.061 Spinal stenosis, lumbar region without neurogenic claudication (principal); M16.12 Unilateral primary osteoarthritis, left hip
CPT/HCPCS: 99213; G0463